=== PATIENT | female | born 1960 | race Caucasian/White ===

== ENCOUNTER 2017-01-01 13:55 | Emergency (ER) | payer MEDICARE, MEDICAID | END 2017-01-01 16:35 | disposition left against medical advice (07) | LOC: UCCORT 13:55 | DX: Z53.21 Procedure and treatment not carried out due to patient leaving prior to being seen by health care provider (principal) ==

== ENCOUNTER 2017-01-23 15:45 | Emergency (ER) | payer MEDICARE, MEDICAID ==
[2017-01-23 16:04] VITALS: BP 114/68
--- NOTE | 2017-01-23 16:18 | UC ---
Hip/Pelvis Pain - HPI Summary HPI Summary: 56 yo female with mental retardation/non verbal was noted to have a bruise of her right thigh today Unsure how she injured it - History Of Current Complaint Chief Complaint: UCLowerExtremity Stated Complaint: RIGHT THIGH INJURY Time Seen by Provider: 01/23/17 16:11 Hx Obtained From: Family/Pilot Plant Technician Mechanism Of Injury: unknown Onset/Duration: Lasting Hours Timing: Constant Severity Initially: Mild Severity Currently: None Pain Intensity: 0 Pain Scale Used: 0-10 Numeric Character Of Pain: Unable To Describe Alleviating Factor(s): Nothing Associated Signs And Symptoms: Positive: Bruising - Allergies/Home Medications Allergies/Adverse Reactions: Allergies Allergy/AdvReac Type Severity Reaction Status Date / Time Diphenhydramine Allergy Unknown Unknown Verified 01/23/17 16:09 [From Benadryl] Reaction Details Fluoxetine [From Prozac] Allergy Unknown Unknown Verified 01/23/17 16:09 Reaction Details Imipramine [From Tofranil] Allergy Unknown Unknown Verified 01/23/17 16:09 Reaction Details Desmopressin Allergy Unknown Verified 01/23/17 16:09 Reaction Details Tricyclic Antidepressants Allergy Unknown Verified 01/23/17 16:09 Reaction Details PMH/Surg Hx/FS Hx/Imm Hx Previously Healthy: Yes Neurological History Of: Reports: Seizures Psychological History Of: Reports: Depression - Surgical History Surgical History: Yes Surgery Procedure, Year, and Place: L ooverectomy, tubal - Family History Known Family History: Positive: None, Unknown - Patient non-verbal - Social History Alcohol Use: None Substance Use Type: None Smoking Status (MU): Never Smoked Tobacco Review of Systems Constitutional: Negative Skin: Bruising Eyes: Negative ENT: Negative Respiratory: Negative Cardiovascular: Negative Gastrointestinal: Negative Genitourinary: Negative Motor: Negative Neurovascular: Negative Musculoskeletal: Negative Neurological: Negative Psychological: Negative All Other Systems Reviewed And Are Negative: Yes Physical Exam Triage Information Reviewed: Yes Appearance: Well-Appearing, No Pain Distress, Well-Nourished Vital Signs: Initial Vital Signs Temp 97.4 F 01/23/17 15:59 Pulse 73 01/23/17 15:59 Resp 14 01/23/17 15:59 BP 114/68 01/23/17 15:59 Pulse Ox 100 01/23/17 15:59 Vital Signs Reviewed: Yes Eyes: Positive: Conjunctiva Clear ENT: Positive: Other: - macroglossia. Negative: Nasal congestion, Nasal drainage Neck: Positive: Supple Respiratory: Positive: Lungs clear, No respiratory distress, No accessory muscle use Cardiovascular: Positive: RRR Musculoskeletal: Positive: Other: - see image, normal gait Neurological: Positive: Alert Skin Exam: Other - see image Hip Injury Course/Dx - Differential Dx/Diagnosis Provider Diagnoses: right thigh ecchymosis /hematoma Discharge - Discharge Plan Condition: Stable Disposition: HOME Patient Education Materials: Hematoma (ED) Referrals: Guerita Crawford MD [Primary Care Provider] - If Needed Additional Instructions: diagnosis: right thigh contusion/hematoma no treatment necessary bruising may spread and take weeks to resolve call for any questions return for any problems Images Front/Back of Body, Lg ([place]): 1 - 10cm x 4 cm ecchymotic region, no limp, does not appear to be painful with palpation
== END 2017-01-23 16:29 | disposition home or self-care (01) ==
LOC: UCCORT 15:45
DX: S70.11XA Contusion of right thigh, initial encounter (principal); X58.XXXA Exposure to other specified factors, initial encounter; Y93.9 Activity, unspecified; Y92.9 Unspecified place or not applicable; F79 Unspecified intellectual disabilities; Z88.8 Allergy status to other drugs, medicaments and biological substances
CPT/HCPCS: 99211; G0463

== ENCOUNTER 2017-05-01 14:58 | Emergency (ER) | payer MEDICARE, MEDICAID ==
[2017-05-01 16:12] VITALS: BP 98/59
--- NOTE | 2017-05-01 16:45 | RAD ---
INDICATION: Left foot injury. TECHNIQUE: 3 views of the left foot were obtained. FINDINGS: The bones are in normal alignment. No fracture is seen. Joint spaces appear maintained. IMPRESSION: NO EVIDENCE FOR FRACTURE.
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
== END 2017-05-01 17:18 | disposition home or self-care (01) ==
LOC: UCCORT 14:58
DX: S90.32XA Contusion of left foot, initial encounter (principal); F79 Unspecified intellectual disabilities; F32.9 Major depressive disorder, single episode, unspecified; M85.80 Other specified disorders of bone density and structure, unspecified site; V00.818A Other accident with wheelchair (powered), initial encounter
CPT/HCPCS: 99211; G0463

== ENCOUNTER 2018-03-20 15:25 | Emergency (ER) | payer MEDICARE, MEDICAID ==
[2018-03-20 16:59] VITALS: BP 102/68
--- NOTE | 2018-03-20 18:03 | UC ---
Knee Pain HPI - HPI Summary HPI Summary: accompanied by resident surgeon, states she lost her footing this afternoon in the bathroom and fell on right knee. She can bear weight and is walking as usual. Patient is non verbal but resident surgeon has not noticed any moaning or grimacing that points to pain or discomfort. - History of Current Complaint Chief Complaint: UCLowerExtremity Stated Complaint: FALL,RIGHT KNEE/HIP Time Seen by Provider: 03/20/18 17:45 Hx Obtained From: Family/Home Aid Hx From Patient Unobtainable Due To: Other - mental retardation Onset/Duration: Sudden Onset, Lasting Hours Severity Initially: Mild Severity Currently: Mild Pain Intensity: 0 Aggravating Factor(s): Nothing Alleviating Factor(s): Nothing Associated Signs And Symptoms: Positive: Negative - Risk Factors Septic Arthritis Risk Factor: Negative Gout Risk Factor: Negative - Allergies/Home Medications Allergies/Adverse Reactions: Allergies Allergy/AdvReac Type Severity Reaction Status Date / Time desmopressin Allergy Unknown Verified 03/20/18 16:51 Reaction Details diphenhydramine Allergy Unknown Verified 03/20/18 16:51 Reaction Details fluoxetine Allergy Unknown Verified 03/20/18 16:51 Reaction Details imipramine Allergy Unknown Verified 03/20/18 16:51 Reaction Details Tricyclic Compounds Allergy Unknown Verified 03/20/18 16:51 Reaction Details Home Medications: Home Medications Calcium Carbonate/Vitamin D3 [Oyster Shell Calcium Tablet] 1 each PO TID [History Confirmed 03/20/18] Cephalexin CAP* [Keflex CAP*] 500 mg PO QID 03/20/18 [History Confirmed 03/20/18 ] Loratadine 10 mg PO DAILY 03/20/18 [History Confirmed 03/20/18] PMH/Surg Hx/FS Hx/Imm Hx Previously Healthy: Yes Neurological History: Seizures - Surgical History Surgical History: Yes Surgery Procedure, Year, and Place: L ooverectomy, tubal - Family History Known Family History: Positive: None, Unknown - Patient non-verbal - Social History Alcohol Use: None Substance Use Type: None Smoking Status (MU): Never Smoked Tobacco Review of Systems Constitutional: Negative Musculoskeletal: Arthralgia All Other Systems Reviewed And Are Negative: Yes Physical Exam Triage Information Reviewed: Yes Appearance: Well-Appearing, No Pain Distress, Well-Nourished Vital Signs: Initial Vital Signs Temp 98 F 03/20/18 16:51 Pulse 78 03/20/18 16:51 Resp 18 03/20/18 16:51 BP 102/68 03/20/18 16:51 Pulse Ox 99 03/20/18 16:51 Vital Signs Reviewed: Yes Eyes: Positive: Conjunctiva Clear Neck exam: Normal Respiratory Exam: Normal Respiratory: Positive: Chest non-tender, Lungs clear, Normal breath sounds Cardiovascular Exam: Normal Cardiovascular: Positive: RRR, No Murmur, Pulses Normal, Brisk Capillary Refill Bowel Sounds: Positive: Present Musculoskeletal: Positive: ROM Intact, No Edema, Other: - superficial abrassion on right knee, no effusion, FROM of right knee and hip, no distal edemas Knee Pain Course/Dx - Course Course Of Treatment: RICE, start ibuprofen one dose if needed for pain, fall prevention, f/u PCP - Differential Dx/Diagnosis Provider Diagnoses: Knee abrassion Discharge - Sign-Out/Discharge Documenting (check all that apply): Discharge/Admit/Transfer - Discharge Plan Condition: Stable Disposition: HOME Patient Education Materials: Ibuprofen (By mouth) Referrals: Guerita Crawford MD [Primary Care Provider] - - Billing Disposition and Condition Condition: STABLE Disposition: HOME
== END 2018-03-20 17:58 | disposition home or self-care (01) ==
LOC: UCCORT 15:25
DX: S80.211A Abrasion, right knee, initial encounter (principal); W19.XXXA Unspecified fall, initial encounter; Y92.9 Unspecified place or not applicable; Z88.8 Allergy status to other drugs, medicaments and biological substances
CPT/HCPCS: 99211; G0463

== ENCOUNTER 2018-05-08 13:30 | Emergency (ER) | payer MEDICARE, MEDICAID ==
[2018-05-08 14:08] VITALS: BP 118/58
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
== END 2018-05-08 14:57 | disposition home or self-care (01) ==
LOC: UCCORT 13:30
DX: S50.311A Abrasion of right elbow, initial encounter (principal); Z88.8 Allergy status to other drugs, medicaments and biological substances; F73 Profound intellectual disabilities; W19.XXXA Unspecified fall, initial encounter; Y93.89 Activity, other specified; Y92.009 Unspecified place in unspecified non-institutional (private) residence as the place of occurrence of the external cause
CPT/HCPCS: 99211; G0463

== ENCOUNTER 2019-01-28 14:51 | Emergency (ER) | payer MEDICARE, MEDICAID ==
--- OUTSIDE RECORDS SUMMARY | 2019-01-28 16:10 | XMS REPORT ---
:1960 Author Care Team Providers Name Role Phone Unavailable Unavailable Unavailable Problems Condition Condition Condition Status Onset Resolution Last Treating Comments Name Details Category Date Date Treatment Clinician Date Profound Active 1999-06-17 Intellectual 00:00:00 Disability Intellectual Active 2018-06-25 Disability, 00:00:00 probable component mild CP Allergies, Adverse Reactions, Alerts Allergy Name Allergy Status Severity Reaction(s) Onset Inactive Treating Comments Type Date Date Clinician MEDICATION Drug Active see notes 1968- ALLERGIES: Allergy -31 Prozac, 19:00:0 Desipramine, 0 Benadryl, Tofranil, FOOD ALLERGIES: None Known OTHER (latex, environmenta l, etc.): None Known Social History Smoking Status Start Date Stop Date Unknown if ever smoked Social History Observation Description Sex Female Medications This patient has no known medications. Vital Signs Vital Name Observation Time Observation Value Comments Body Weight 2018-06-25 00:00:00 134.0 kg BP Systolic 2018-06-25 00:00:00 102 mm[Hg] BP Diastolic 2018-06-25 00:00:00 62 mm[Hg] Body Temperature 2018-06-25 00:00:00 97.7 [place] Heart Rate 2018-06-25 00:00:00 78 /min Respiratory Rate 2018-06-25 00:00:00 20 /min Procedures This patient has no known procedures. Reason for Referral This patient has no known reason for referral. Chief Complaint and Reason for Visit This patient event has no chief complaint or reason for visit specified. Results This patient has no known results. Assessments This patient has no known assessments.
[2019-01-28 16:25] VITALS: BP 104/81
[2019-01-28] MEDS ORDERED: Nitrofurantoin Macrocrystals* 50 MG CAP PO ONE (16:53)
--- NOTE | 2019-01-28 16:57 | UC ---
Complaint Female HPI - HPI Summary HPI Summary: 58-year-old woman with severe mental retardation [facility] she's been having urinary incontinence over the last day to 2 days. Patient has recurrent UTIs. She is currently on Keflex as a prophylactic. Her behavior is slightly more agitated than usual. No fevers noted. Normal BM yesterday. No obvious pain. Caregiver reports urinary incontinence is usually the first sign of a UTI. - History Of Current Complaint Chief Complaint: UCGU Stated Complaint: URINARY COMPLAINT,PACING Time Seen by Provider: 01/28/19 16:31 Hx Last Menstrual Period: N/A Pain Intensity: 0 - Allergies/Home Medications Allergies/Adverse Reactions: Allergies Allergy/AdvReac Type Severity Reaction Status Date / Time desmopressin Allergy Unknown Verified 01/28/19 16:26 Reaction Details diphenhydramine Allergy Unknown Verified 01/28/19 16:26 Reaction Details fluoxetine Allergy Unknown Verified 01/28/19 16:26 Reaction Details imipramine Allergy Unknown Verified 01/28/19 16:26 Reaction Details Tricyclic Compounds Allergy Unknown Verified 01/28/19 16:26 Reaction Details Home Medications: Home Medications Cephalexin CAP* [Keflex CAP*] 250 mg PO DAILY 01/28/19 [History Confirmed ] PMH/Surg Hx/FS Hx/Imm Hx Previously Healthy: Yes - MR, RECURRENT UTIS - Surgical History Surgical History: Yes Surgery Procedure, Year, and Place: L ooverectomy, tubal - Family History Known Family History: Positive: None, Unknown - Patient non-verbal - Social History Alcohol Use: None Substance Use Type: None Smoking Status (MU): Never Smoked Tobacco - Immunization History Most Recent Tetanus Shot: 11/22/12 Vaccination Up to Date: Yes Review of Systems All Other Systems Reviewed And Are Negative: Yes Constitutional: Positive: Negative Skin: Positive: Negative Eyes: Positive: Negative ENT: Positive: Negative Respiratory: Positive: Negative Cardiovascular: Positive: Negative Gastrointestinal: Positive: Negative Genitourinary: Positive: Other - URINARY INCONTINENCE Physical Exam Triage Information Reviewed: Yes Appearance: Well-Appearing, No Pain Distress, Well-Nourished Vital Signs: Initial Vital Signs Temp 98.1 F 01/28/19 16:18 Pulse 84 01/28/19 16:18 Resp 19 01/28/19 16:18 BP 104/81 01/28/19 16:18 Pulse Ox 97 01/28/19 16:18 Vital Signs Reviewed: Yes Eye Exam: Normal Eyes: Positive: Conjunctiva Clear Respiratory: Positive: Lungs clear, Normal breath sounds, No respiratory distress Cardiovascular: Positive: RRR Abdomen Description: Positive: Nontender, Soft Bowel Sounds: Positive: Present Musculoskeletal Exam: Normal Musculoskeletal: Positive: Strength Intact, ROM Intact Neurological Exam: Normal Neurological: Positive: Alert, Muscle Tone Normal Psychological Exam: Normal Skin Exam: Normal Complaint Female Dx - Course Course Of Treatment: The urine showed a trace of blood. Urine culture sent. Because by history: The patient has urinary incontinence usually precedes a UTI we will go ahead and treat with Macrobid 100 mg by mouth twice a day for 7 days. I discussed with the caregiver that if the patient did not get better if she still continued to have problems or if she got worse she needs further evaluation in the emergency department. - Differential Dx/Diagnosis Provider Diagnosis: Urine incontinence Discharge - Sign-Out/Discharge Documenting (check all that apply): Patient Departure All imaging exams completed and their final reports reviewed: No Studies - Discharge Plan Condition: Stable Disposition: HOME Prescriptions: Nitrofurantoin Monohyd/M-Cryst [Macrobid 100 mg Capsule] 100 mg PO BID #13 cap Patient Education Materials: Urinary Incontinence (ED), Urinary Tract Infection in Women (ED) Referrals: Guerita Crawford MD [Primary Care Provider] - Additional Instructions: FOLLOW UP WITH YOUR DOCTOR IN 3-5 DAYS. GO TO THE EMERGENCY DEPARTMENT FOR ANY WORSENING OF YOUR CONDITION; FEVER, PAIN , CHANGE IN BEHAVIOR OR QUESTIONS OR CONCERNS. - Billing Disposition and Condition Condition: STABLE Disposition: Home
--- NOTE | 2019-01-31 07:13 | UC ---
- Progress Note Progress Note: urine no growth no change [id number] 01/31/19 Course/Dx - Diagnoses Provider Diagnoses: Urine incontinence Discharge - Sign-Out/Discharge Documenting (check all that apply): Post-Discharge Follow Up All imaging exams completed and their final reports reviewed: No Studies - Discharge Plan Condition: Stable Disposition: HOME Prescriptions: Nitrofurantoin Monohyd/M-Cryst [Macrobid 100 mg Capsule] 100 mg PO BID #13 cap Patient Education Materials: Urinary Incontinence (ED), Urinary Tract Infection in Women (ED) Referrals: Guerita Crawford MD [Primary Care Provider] - Additional Instructions: FOLLOW UP WITH YOUR DOCTOR IN 3-5 DAYS. GO TO THE EMERGENCY DEPARTMENT FOR ANY WORSENING OF YOUR CONDITION; FEVER, PAIN , CHANGE IN BEHAVIOR OR QUESTIONS OR CONCERNS. - Billing Disposition and Condition Condition: STABLE Disposition: Home
== END 2019-01-28 17:03 | disposition home or self-care (01) ==
LOC: UCCORT 14:51
DX: R32 Unspecified urinary incontinence (principal); F79 Unspecified intellectual disabilities; Z87.440 Personal history of urinary (tract) infections; Z88.8 Allergy status to other drugs, medicaments and biological substances
CPT/HCPCS: 81003; 87086; 99212; A9270-GY; G0463

== ENCOUNTER 2019-09-13 16:03 | Emergency (ER) | payer MEDICARE, MEDICAID ==
--- OUTSIDE RECORDS SUMMARY | 2019-09-13 16:46 | XMS REPORT | Continuity of Care Document ---
:1960 External Reference #:[id number] Author Name Guerita Crawford MD Address [address] [place] [id number] Care Team Providers Name Role Phone Oh, In MD Riana - Obstetrics & Care Team Information Talent Partner Gynecology Tommy Brown - Psychiatry Care Team Information Talent Partner [phone] - Urology Care Team Information Talent Partner [phone] Problems Active Problems Provider Date Anxiety state Guerita Crawford MD Onset: 01/12/2014 Constipation Guerita Crawford MD Onset: 12/10/2007 Moderate major depression, single episode Guerita Crawford MD Onset: 2005 Epilepsy Guerita Crawford MD Onset: 12/10/2005 Anemia Guerita Crawford MD Onset: 12/06/2014 Severe mental retardation (I.Q. 20-34) Guerita Crawford MD Onset: 07/15/2016 History of chronic urinary tract infection Guerita Crawford MD Onset: 2018 Vitamin D deficiency Guerita Crawford MD Onset: 12/07/2018 Osteoporosis Guerita Crawford MD Onset: 05/19/2019 Social History Type Date Description Comments Sex Unknown Tobacco Use Start: Unknown Never Smoked Cigarettes Smoking Status Reviewed: 03/28/19 Never Smoked Cigarettes Tobacco Use Start: Unknown Patient has never smoked Allergies, Adverse Reactions, Alerts Active Allergies Reaction Severity Comments Date Prozac 11/29/2014 Tofranil 11/29/2014 Desipramine 11/29/2014 Benadryl 11/29/2014 Desmopressin Unknown 12/07/2018 Medications Active Medications SIG Qnty Indications Ordering Date Provider Vitamin D 1 by mouth every 30tabs E55.9 Ty 06/13/2019 1000Unit day MD Guerita Tablets Prolia 60 mg SC every 6 1ml M81.0 Ty, 05/19/2019 60mg/ml Soln mos MD Guerita Prefill Syringe SM Clearlax 17 Gram (1 Packet) 510units K59.00 Ty, 04/05/2019 Powder By Mouth Daily MD Guerita Mixed With 8Oz Fluid For Constipation Alprazolam 2 by mouth 1 hour 2tabs F41.1 Ty, 02/23/2018 0.25mg Tablets prior to MD Guerita appointment for mammogram Soluble Fiber Therapy 1 tablespoon in 8 454units Ty, 04/22/2017 oz water every day MD Guerita Powder (do not give with dinner) Loratadine Take 1 Tablet By 30tabs Ty, 03/31/2017 10mg Tablets Mouth Daily MD Guerita Oyster Shell Calcium take 1 tablet by 90tabs Ty, 03/09/2017 mouth 3 times MD Guerita 500mg Tablets daily Debrox 2 drop to each ear 1units H61.23 Ty, 01/01/2017 6.5% Solution canal daily for MD Guerita the first 5 days of each month Nystatin apply to affected 30gm B37.9 Ty, 10/29/2016 826015Aeed/GM area 2 times a day MD Guerita Powder for 7 days as needed Milk Of Magnesia 30cc every day as 710ml K59.00 Ty, 09/12/2016 needed for MD Guerita 1200mg/15ML Suspension constipation Abreva apply twice a day 2units B00.2 G[place]ay, 11/29/2015 10% Cream x 1 week DO [employer] Bismuth Subcarbonate 2 tablespoon by 1Bottle K52.89 Ty, 08/02/2015 mouth as needed MD Guerita Powder after each loose stool Bisacodyl Laxative [address] of rectum 100units Ty, 2014 10mg every 3days as MD Guerita Suppository needed Acetaminophen Insert 1 12units Ty, 11/29/2013 650mg Suppository MD Guerita Suppository Rectally as Needed For Temperature >100 Kmkjsydw-Qxygncijx-Ppt 1 teaspoon every 4 355ml Ty, 01/13/2008 ethicone hours as needed MD Guerita [id number]/5ML for Suspension indigestion/upset stomach Sertraline HCL take 1 & 1/2 42tabs F32.1 Digiovanna, 02/20/2005 100mg tablets (150mg) by MD Satish Tablets mouth daily Divalproex Sodium 2 po sprinkles tid 180tabs G40.909 Unknown 125mg Tablets Cephalmatilda 1 by mouth daily. Z87.440 Elliot, 250mg Tablets (Dr. Zarate) Maria Alejandramoyolanda LUQUE Guaifenesin 10ml every 4 hours Unknown 100mg/5ML as needed Liquid Ibuprofen 1-2 by mouth every 100tabs Unknown 200mg Tablets 6 hours with food or snack as needed pain Pseudoephedrine HCL 1 by mouth every Unknown 30mg 6hr as needed Tablets Acetaminophen 2 by mouth every 4 Unknown 325mg hours a day as Tablets needed for fever >100 History Medications Ciprofloxacin HCL one tab by mouth 6tabs Guerita Crawford, 08/11/2019 - 250mg twice a day for 08/14/2019 Tablets three days for infection Vitamin D3 1000Iu take 1 capsule by 30units E55.9 Guerita Crawford, 2018 - Softgel (SD) mouth daily 06/10/2019 Sulfamethoxazole/Trim 1 by mouth twice 10tabs N39.0 Guerita Crawford, 2018 - ethoprim DS a day x 5 days 04/24/2019 800-160mg Tablets Immunizations CPT Code Status Date Vaccine Lot # [id number] Given 08/29/2018 Influenza Virus Vaccine,Quadrivalent,Split,Preserv Free, 0.5mL,Im Q2039 Given 07/24/2017 Flu Vaccine NOS Q2037 Given 10/24/2014 Fluvirin Immunization 01004 Given 08/23/2010 Afluria Or Fluvirin Flu Vac Intramuscular 66878 Given 11/01/2009 Afluria Or Fluvirin Flu Vac Intramuscular 56693 Given 11/09/2007 Tdap (Adacel) Ages 7 And Above Only 89220 Given 11/09/2007 Tdap (Adacel) Ages 7 And Above Only 80378 Given 09/22/2007 Afluria Or Fluvirin Flu Vac Intramuscular 48482 Given 10/28/2006 Afluria Or Fluvirin Flu Vac Intramuscular 35098 Given 09/24/2005 Afluria Or Fluvirin Flu Vac Intramuscular 63283 Given 09/24/2004 Afluria Or Fluvirin Flu Vac Intramuscular 58733 Given 09/15/2003 Afluria Or Fluvirin Flu Vac Intramuscular Q2039 Refused 08/19/2018 Flu Vaccine NOS Vital Signs Date Vital Result Comment 09/09/2019 10:19am Weight 142.00 lb Heart Rate 78 /min BP Systolic 130 mmHg BP Diastolic 72 mmHg Respiratory Rate 18 /min O2 % BldC Oximetry 98 % Ra 08/03/2019 9:15am Body Temperature 98.4 F Weight 143.00 lb Heart Rate 70 /min BP Systolic 120 mmHg BP Diastolic 64 mmHg Respiratory Rate 18 /min Results Test Date Facility Test Result H/L Range Note Laboratory 08/08/20 [facility]rine Microbiology res Abnormal 1, 2 test finding 19 Culture <SEE NOTE> Laboratory 08/03/20 [facility] Microbiology res 3, 4 test finding 19 Culture <SEE NOTE> [facility] 07/29/20 [facility] White Blood 7.3 K/uL Normal 3.1 -10.7 5 W/Automated 19 (315)- - Count Diff Red Blood Count 4.16 M/uL Normal 3.90-5.40 Hemoglobin 13.5 gm/dL Normal 11.6-15.8 Hematocrit 37.9 % Normal 36.0-46.1 Mean Cell Volume 91.1 fl Normal 80.9-99.0 Mean Corpuscular HGB 32.5 pg Normal 25.9-32.7 Mean Corpuscular HGB Conc 35.6 g/dL High 30.8-34.3 Platelet Count 265 K/uL Normal 155-360 Red Cell Distri Width SD 41.1 fl Normal 36-47 Red Cell Distri Width %CV 12.4 % Normal 11.7-14.4 Mean Platelet Volume 9.5 fl Normal 8.9-12.4 Neut% 55.4 % Normal 40.4-72.8 Lymph % 31.6 % Normal 20.0-42.0 Bandera % 9.3 % Normal 4.3-13.2 Eo% 2.2 % Normal 0.0-6.6 Bas% 0.8 % Normal 0.0-1.1 Immature Grans 0.7 % Normal 0.0-5.0 NRBC % 0.0 /100WBC < 10/ 100 WBC Neut# 4.03 K/uL Normal 1.8-7.0 Lymph # 2.30 K/uL Normal 1.0-4.0 Bandera # 0.68 K/uL Normal 0.3-0.9 Eos # 0.16 K/uL Normal 0.0-0.5 Baso # 0.06 K/uL Normal 0.0-0.1 Immature Grans Absolute 0.05 K/uL NRBC # 0.00 K/uL Laboratory test 05/12/2019 [facility] Vitamin 47.8 30.0-100.0 6, 7 finding (315)- - D,25-Hydroxy ng/mL Ammonia 39 umol/L High 11-32 [facility] Micro[facility] res Abnormal 8 finding <SEE NOTE> 1 House staff with drop off sample 2 Microbiology results COLONY COUNT 40,000 CFU/ML PRELIMINARY RESULT Gram Negative Mikey. ID & Sensitivity to Follow. 08/10/2019 11:46 AM FINAL RESULT Pseudomonas aeruginosa (Isolate 1) Sensitivity Analysis Isolate 1 --------- AMIKACIN <=16 S AZTREONAM <=4 S CEFEPIME <=8 S CEFTAZIDIME 4 S CIPROFLOXACIN <=1 S GENTAMYCIN 4 S IMIPENEM <=1 S LEVOFLOXACIN <=2 S PIPERACILLIN/TAZOBACTAM <=16 S TOBRAMYCIN <=4 S S=Sensitive;I=Indeterminate;R=Resistant 3 Fastin hours 4 Microbiology results SOURCE URINE FINAL RESULT 50,000 CFU/ML Mixed urogenital constanza consistent with contamination. Request fresh specimen if indicated. 5 SHAKING,WITHDRAWL,HAS NOT VOIDED ALL DAY 6 Z79.899 7 Vitamin D deficiency has been defined by the [place] of [employer] and an Endocrine Society practice guideline as a level of serum 25-OH vitamin D less than 20 ng/mL (1,2). The Endocrine Society went on to further define vitamin D insufficiency as a level between 21 and 29 ng/mL (2). 1. IOM ([place] of [employer]). 2010. Dietary reference intakes for calcium and D. [place]: The National Academies Press. 2. Nawaf BEAN, Mary Kate CARMEN, Ariel BESS, et al. Evaluation, treatment, and prevention of vitamin D deficiency: an Endocrine Society clinical practice guideline. JCEM. 2010; 96(7):1911-30. Performed at: RN - [facility] [address] [id number] [place] Attendant: Anne Alvarez MD, Phone: [phone] Microbiology results SOURCE Clean Catch Midstream COLONY COUNT >100,000 CFU/ML PRELIMINARY RESULT Gram Negative Mikey. ID & Sensitivity to Follow. 04/16/2019 11:54 AM FINAL RESULT Enterobacter cloacae (Isolate 1) Sensitivity Analysis Isolate 1 --------- AMIKACIN <=16 S AMOXICILLIN/CLAVULANATE >16/8 R AMPICILLIN >16 R AMPICILLIN/SULBACTAM >16/8 R CEFEPIME <=8 S CEFOTAXIME 16 I CEFTRIAXONE 8 R CEFUROXIME >16 R CIPROFLOXACIN <=1 S ERTAPENEM <=0.5 S GENTAMYCIN <=2 S IMIPENEM <=1 S LEVOFLOXACIN <=2 S NITROFURANTOIN >64 R PIPERACILLIN/TAZOBACTAM <=16 S TETRACYCLINE <=4 S TOBRAMYCIN <=4 S TRIMETHOPRIM/SULFAMETHOXAZ <=2/38 S S=Sensitive;I=Indeterminate;R=Resistant Procedures Date Code Description Status 06/10/2019 06762 Measure Blood Oxygen Level Single Determination Completed 05/11/2019 681312444 Bone Mineral Density Test Completed 05/09/2019 961603931 Bone Mineral Density Test Completed 03/28/2019 34596 Measure Blood Oxygen Level Single Determination Completed 01/20/2019 [id number] Colonoscopy Completed 11/10/2016 016241762 Bone Mineral Density Test Completed Medical Devices Description No Information Available Encounters Type Date Location Provider Dx Diagnosis Office Visit 08/03/2019 [facility] Anita Aparicio NP J06.9 Acute upper 9:00a respiratory infection, unspecified E86.0 Dehydration Office Visit 06/10/2019 1:45p [facility] Marlene Burns PA K64.8 Other hemorrhoids Office Visit 04/12/2019 2:00p [facility] Guerita Crawford MD R35.0 Frequency of micturition Office Visit 03/28/2019 3:30p [facility] Alexia Segura, J06.9 Acute upper respiratory VARITYPIST infection, unspecified Assessments Date Code Description Provider 09/09/2019 Z00.00 Encounter for general adult medical Guerita Crawford MD examination without abnormal findings 09/09/2019 M81.0 Age-related osteoporosis without current Guerita Crawford MD pathological fracture 09/09/2019 F32.1 Major depressive disorder, single Guerita Crawford MD episode, moderate 09/09/2019 G40.909 Epilepsy, unspecified, not intractable, Guerita Crawford MD without status epile 09/09/2019 D64.9 Anemia, unspecified Guerita Crawford MD 09/09/2019 F72 Severe intellectual disabilities Guerita Crawford MD 09/09/2019 Z87.440 Personal history of urinary (tract) Guerita Crawford MD infections 09/09/2019 E55.9 Vitamin D deficiency, unspecified Guerita Crawford MD 09/09/2019 R35.0 Frequency of micturition Guerita Crawford MD 09/09/2019 Z13.31 Encounter for screening for depression Guerita Crawford MD 08/08/2019 E86.0 Dehydration [facility] 08/08/2019 R35.0 Frequency of micturition [facility] 08/03/2019 E86.0 Dehydration [facility] 08/03/2019 J06.9 Acute upper respiratory infection, Anita Aparicio, DEIRDRE unspecified 08/03/2019 R35.0 [facility] 08/03/2019 E86.0 Dehydration Anita Aparicio NP 06/10/2019 K64.8 Other hemorrhoids Marlene Burns PA 06/02/2019 M81.0 Age-related osteoporosis without current Guerita Crawford MD pathological fracture 06/02/2019 M81.0 Age-related osteoporosis without current Schedule, Nurses pathological fractu 04/15/2019 R35.0 Frequency of micturition [facility] 04/12/2019 R35.0 Frequency of micturition Guerita Crawford MD 03/28/2019 J06.9 Acute upper respiratory infection, Alexia Segura NP unspecified Plan of Treatment Future Appointment(s):09/12/2020 10:00 am - Gu[facility] Crawford MD at [facility]/09/2019 - Guerita Crawford MDZ00.00 Encounter for general adult medical examination without abnormal findingsComments:Annual medicare well visit done. Updated list of consulting doctors. Updated medication list see medicare wellness exam form. Counseled about fall prevention.Follow up:1-year MEDICARE WELLNESS EXAM and routine follow-up.M81.0 Age-related osteoporosis without current pathological fractureComments:Kt is working well. Continue current medication. The patient was recommended to walk and stand.F32.1 Major depressive disorder, single episode, moderateComments:Depression is well controlled with the use of sertraline. Continue current medication.G40.909 Epilepsy, unspecified, not intractable, without status epileComments:This is treated by Dr. Cameron.D64.9 Anemia, unspecifiedComments:Anemia has resolved.F72 Severe intellectual disabilitiesComments:She participates in [facility]. We competed her from for participation.Z87.440 Personal history of urinary (tract) infectionsComments:She had positive urine culture. We will repeat the culture to make sure that everything is normal.E55.9 Vitamin D deficiency, unspecifiedComments:She is taking vitamin D supplements daily. Continue with this.R35.0 Frequency of micturitionComments:She had positive urine culture. We will repeat the culture to make sure that everything is normal.Z13.31 Encounter for screening for depressionComments:screening for depression is negative - PHQ2 = 0 Functional Status Functional Condition Comment Date Status Dependent with transportation Active Dependent with using the telephone Active Dependent with shopping Active Dependent with reading Active Dependent with money management Active Dependent with medication management Active Dependent with laundry Active Dependent with housekeeping Active Dependent with food preparation Active Dependent with cooking Active Dependent with cleaning Active Requires assistance with toileting Active Independent with standing Active Dependent with grooming Active Dependent with feeding Active Dependent with dressing Active Dependent with bathing Active Independent with ambulating Active Mental Status Description No Information Available Referrals Description No Information Available
--- OUTSIDE RECORDS SUMMARY | 2019-09-13 16:46 | XMS REPORT | Continuity of Care Document ---
:1960 External Reference #:[id number] Author Name Anita Aparicio, DEIRDRE Address [address] [place] [address] Care Team Providers Name Role Phone Oh, Kody Mayers MD - Obstetrics & Care Team Information Manager Investigations Gynecology Tommy Brown - Psychiatry Care Team Information Manager Investigations [phone] - Urology Care Team Information Manager Investigations [phone] Problems Active Problems Provider Date Anxiety state [...] apply to affected 30gm B37.9 Ty, 10/29/2016 [id number]/GM area 2 times a day MD Guerita [...] Suppository Rectally as Needed For Temperature >100 Eemeceqj-Kiezwghis-Qsl 1 teaspoon every 4 355ml Ty, 01/13/2008 ethicone hours as needed MD Guerita [phone] for Suspension indigestion/upset stomach Sertraline HCL take 1 & 1/2 42tabs F32.1 Digiovanna, 02/20/2005 100mg tablets (150mg) by MD Satish Tablets mouth daily Divalproex Sodium 2 po sprinkles tid 180tabs G40.909 Unknown 125mg Tablets Cephalmatilda 1 by mouth daily. Z87.440 Elliot, 250mg Tablets (Dr. Zarate) Mahmoud Guaifenesin 10ml every 4 hours Unknown 100mg/5ML as needed Liquid Ibuprofen 1-2 by mouth every 100tabs Unknown 200mg Tablets 6 hours with food or snack as needed pain Pseudoephedrine HCL 1 by mouth every Unknown 30mg 6hr as needed Tablets Acetaminophen 2 by mouth every 4 Unknown 325mg hours a day as Tablets needed for fever >100 Acetaminophen insert 1 Unknown 650mg suppository Suppository rectally as needed for temperature >100 History Medications Vitamin D3 1000Iu take 1 capsule 30units E55.9 Guerita Crawford, 06/10/2019 - Softgel (SD) by mouth daily 06/10/2019 Sulfamethoxazole/Trime 1 by mouth 10tabs N39.0 Guerita Crawford, 04/19/2019 - thoprim DS twice a day x 5 MD 04/24/2019 800-160mg days Tablets Ciprofloxacin HCL 1 by mouth 6tabs Guerita Crawford, 02/21/2019 - 250mg twice a day x 3 MD 02/24/2019 Tablets days Immunizations CPT Code Status Date Vaccine Lot # [id number] Given 08/29/2018 Influenza Virus Vaccine,Quadrivalent,Split,Preserv Free, 0.5mL,Im Q2039 Given 07/24/2017 Flu Vaccine NOS Q2037 Given 10/24/2014 Fluvirin Immunization 04807 Given 08/23/2010 Afluria Or Fluvirin Flu Vac Intramuscular 40127 Given 11/01/2009 Afluria Or Fluvirin Flu Vac Intramuscular 05324 Given 11/09/2007 Tdap (Adacel) Ages 7 And Above Only 05016 Given 11/09/2007 Tdap (Adacel) Ages 7 And Above Only 82254 Given 09/22/2007 Afluria Or Fluvirin Flu Vac Intramuscular 14508 Given 10/28/2006 Afluria Or Fluvirin Flu Vac Intramuscular 85158 Given 09/24/2005 Afluria Or Fluvirin Flu Vac Intramuscular 00458 Given 09/24/2004 Afluria Or Fluvirin Flu Vac Intramuscular 05845 Given 09/15/2003 Afluria Or Fluvirin Flu Vac Intramuscular Q2039 Refused 08/19/2018 Flu Vaccine NOS Vital Signs Date Vital Result Comment 08/03/2019 9:15am Body Temperature 98.4 F Weight 143.00 lb Heart Rate 70 /min BP Systolic 120 mmHg BP Diastolic 64 mmHg Respiratory Rate 18 /min 06/10/2019 1:52pm Weight 142.00 lb Heart Rate 71 /min BP Systolic 120 mmHg BP Diastolic 60 mmHg Respiratory Rate 18 /min O2 % BldC Oximetry 98 % Results Test Date Facility Test Result H/L Range Note Laboratory test 08/03/2019 [facility] <pending> finding Culture CBS W/Automated 07/29/2019 [facility] White Blood 7.3 K/ uL Normal 3.1-10.7 1 Diff (315)- - Count Red Blood Count 4.16 M/uL Normal 3.90-5.40 [...] 40.4-72.8 Lymph % 31.6 % Normal 20.0-42.0 [place] % 9.3 % Normal 4.3-13.2 Eo% 2.2 % Normal 0.0-6.6 Bas% 0.8 % Normal 0.0-1.1 Immature Grans 0.7 % Normal 0.0-5.0 NRBC % 0.0 /100WBC < 10/ 100 WBC Neut# 4.03 K/uL Normal 1.8-7.0 Lymph # 2.30 K/uL Normal 1.0-4.0 [place] # 0.68 K/uL Normal 0.3-0.9 Eos # 0.16 K/uL Normal 0.0-0.5 Baso # 0.06 K/uL Normal 0.0-0.1 Immature Grans Absolute 0.05 K/uL NRBC # 0.00 K/uL Laboratory test 05/12/2019 [facility] Vitamin 47.8 30.0-100.0 2, 3 finding (315)- - D,25-Hydroxy ng/mL Ammonia 39 umol/L High 11-32 Laboratory test 04/15/2019 [facility]rine Culture Microbiology res Abnormal 4 finding <SEE NOTE> Laboratory test 02/18/2019 [facility] Urine Culture Microbiology res Abnormal 5 finding <SEE NOTE> CBC with Auto 02/10/2019 [facility] WBC 5.8 K/uL 4.1-11 6 Diff-fcmg .0 RBC 4.24 M/uL 4.00-5.40 Hemoglobin 13.6 gm/dL 12.0-16.0 Hematocrit 39.0 % 36.0-47.0 MCV 91.8 fL 80.0-97.0 MCH 32.0 pg 27.0-32.0 MCHC 34.9 g/dL 32.0-36.0 RDW 13.7 % 11.5-14.5 PLT Count 260 K/ul 140-400 MPV 8.8 FL 7.1-10.7 Neutrophil 57.9 % 35.0-75.0 Lymphocyte 31.0 % 16.0-52.0 Monocyte 7.7 % 2.0-10.0 Eosinophil 2.9 % 0.0-5.0 Basophil 0.5 % 0.0-4.0 Abs Neutrophils 3.4 K/uL 2.1-8.0 Abs Lymphocytes 1.8 K/uL 0.8-5.5 Abs Monocytes 0.5 K/uL 0.1-1.0 Abs Eosinophils 0.2 K/uL 0.0-0.5 Abs Basophils 0.0 K/uL 0.0-0.3 Comprehensive Met Panel-[facility] 02/10/2019 [facility] Sodium 138 mmol/L 135- 146 7 Potassium 4.5 mmol/L 3.5-5.2 Chloride# 97 mmol/L 97-110 8 Carbon Dioxide 30 mmol/L 24-34 Glucose 86 mg/dL 70-105 BUN 14 mg/dL 6-26 Creatinine 0.5 mg/dL 0.5-1.4 Calcium 9.8 mg/dL 8.5-10.2 Total Protein 7.6 g/dL 6.0-8.0 Albumin 4.6 g/dL 3.6-4.9 Globulin 3.0 g/dL 2.0-3.5 A/G Ratio 1.5 Ratio 1.0-2.2 Total Bilirubin 0.3 mg/dL 0.1-1.3 Alkaline Phosphatase 48 U/L 24-140 Alt 10 U/L 3-42 Ast 18 U/L 8-42 Anion Gap 11 mmol/L 5-15 9 Krystal Egfr >60 >60 10 Non Krystal Egfr >60 >60 11 Laboratory test finding 02/10/2019 [facility] TSH 1.62 uIU/mL 0.35-4.94 Laboratory test finding 02/10/2019 [facility] Valproic Acid 95 ug/mL (50- 110) 12 1 SHAKING,WITHDRAWL,HAS NOT VOIDED ALL DAY 2 Z79.899 3 Vitamin D deficiency has been defined by the [employer] of [employer] and an Endocrine Society practice guideline as a level of serum 25-OH vitamin D less than 20 ng/mL (1,2). The Endocrine Society went on to further define vitamin D insufficiency as a level between 21 and 29 ng/mL (2). 1. IOM ([employer] of [employer]). 2010. Dietary reference intakes for calcium and D. [place]: The National Academies Press. 2. Nawaf MF, Mary Kate NC, Ariel BESS, et al. Evaluation, treatment, and prevention of vitamin D deficiency: an Endocrine Society clinical practice guideline. JCEM. 2010; 96(7):1911-30. Performed at: RN - [facility] [address] [id number] Food Inspector: Anne Alvarez MD, Phone: [phone] 4 Microbiology results SOURCE Clean Catch Midstream COLONY [...] TOBRAMYCIN <=4 S TRIMETHOPRIM/SULFAMETHOXAZ <=2/38 S S=Sensitive;I=Indeterminate;R=Resistant 5 Microbiology results SOURCE Clean Catch Midstream COLONY COUNT >100,000 CFU/ML PRELIMINARY RESULT Gram Negative Mikey. ID & Sensitivity to Follow. 02/19/2019 8:24 PM FINAL RESULT Pseudomonas aeruginosa (Isolate 1) Sensitivity Analysis Isolate 1 --------- AMIKACIN <=16 S AZTREONAM <=4 S CEFEPIME <=8 S CEFTAZIDIME 8 S CIPROFLOXACIN <=1 S GENTAMYCIN <=2 S IMIPENEM <=1 S LEVOFLOXACIN <=2 S PIPERACILLIN/TAZOBACTAM <=16 S TOBRAMYCIN <=4 S S=Sensitive;I=Indeterminate;R=Resistant 6 6 mos 7 Updated reference range on new analyzer 8 Updated reference range on new analyzer 9 Updated Reference Range 10 Concerning GFR Guidelines for Americans: Normal function or mild renal disease, if clinically at risk: >/= 60 mL/min Moderately decreased: 30-59 Severely decreased: 15-29 Renal failure: <15 11 Concerning GFR Guidelines: Normal function or mild renal disease, if clinically at risk: >/= 60 mL/min Moderately decreased: 30-59 Severely decreased: 15-29 Renal failure: <15 Glomerular Filtration Rate (GFR) is estimated based on the MDRD equation, which assumes a steady state for creatinine as recommended by the National Kidney Disease Education Program in conjunction with the National Institutes of Health and the National Kidney Foundation. Clinical conditions in which it may be necessary to measure GFR by using clearance methods include extremes of age and body size, severe malnutrition or obesity, diseases of skeletal muscle, paraplegia or quadriplegia, vegetarian diet, rapidly changing kidney function, and calculation of the dose of potentially toxic drugs that are excreted by the kidneys. 12 Unless otherwise specified, testing performed by [facility] [address] [place] [id number] Procedures Date Code Description Status 06/10/2019 84486 Measure Blood Oxygen Level Single Determination Completed 05/11/2019 923643401 Bone Mineral Density Test Completed 05/09/2019 [id number] Bone Mineral Density Test Completed 03/28/2019 81931 Measure Blood Oxygen Level Single Determination Completed 01/20/2019 [id number] Colonoscopy Completed 11/10/2016 [id number] Bone Mineral Density Test Completed Medical Devices Description No Information Available Encounters Type Date Location Provider Dx Diagnosis Office Visit 06/10/2019 [facility] Marlene Burns PA K64.8 Other hemorrhoids 1:45p Office Visit 04/12/2019 [facility] Guerita Crawford MD R35.0 Frequency of 2:00p micturition Office Visit 03/28/2019 [facility] Jerome Segura06.9 Acute upper 3:30p Alexia, [employer] respiratory infection, unspecified Office Visit 02/17/2019 [facility] Guerita Crawford MD F41.1 Generalized anxiety 2:30p disorder K59.00 Constipation, unspecified F32.1 Major depressive disorder, single episode, moderate G40.909 Epilepsy, unsp, not intractable, without status epilepticus D64.9 Anemia, unspecified F72 Severe intellectual disabilities Z87.440 Personal history of urinary (tract) infections E55.9 Vitamin D deficiency, unspecified M85.89 Ot disrd of bone density and structure, multiple sites Z12.31 Encntr screen mammogram for malignant neoplasm of breast Assessments Date Code Description Provider 08/03/2019 J06.9 Acute upper respiratory infection, Anita Aparicio NP unspecified 08/03/2019 E86.0 Dehydration Anita Aparicio NP 06/10/2019 K64.8 Other hemorrhoids Marlene Burns PA 06/02/2019 M81.0 Age-related osteoporosis without current Guerita Crawford MD pathological fracture 06/02/2019 M81.0 Age-related osteoporosis without current Schedule, Nurses pathological fractu 04/15/2019 R35.0 Frequency of micturition [facility] 04/12/2019 R35.0 Frequency of micturition Guerita Crawford MD 03/28/2019 J06.9 Acute upper respiratory infection, Digiovanna, Alexia, [employer] unspecified 02/18/2019 R30.0 Dysuria Guerita Crawford MD 02/18/2019 R30.0 Dysuria Schedule, Laboratory 02/18/2019 R30.0 Dysuria [facility] 02/17/2019 F41.1 Generalized anxiety disorder Guerita Crawford MD 02/17/2019 K59.00 Constipation, unspecified Guerita Crawford MD 02/17/2019 F32.1 Major depressive disorder, single Guerita Crawford MD episode, moderate 02/17/2019 G40.909 Epilepsy, unspecified, not intractable, Guerita Crawford MD without status epile 02/17/2019 D64.9 Anemia, unspecified Guerita Crawford MD 02/17/2019 F72 Severe intellectual disabilities Guerita Crawford MD 02/17/2019 Z87.440 Personal history of urinary (tract) Guerita Crawford MD infections 02/17/2019 E55.9 Vitamin D deficiency, unspecified Guerita Crawford MD 02/17/2019 M85.89 Other specified disorders of bone density Guerita Crawford MD and structure, mul 02/17/2019 Z12.31 Encounter for screening mammogram for Guerita Crawford MD malignant neoplasm of 02/10/2019 G40.909 Epilepsy, unspecified, not intractable, Guerita Crawford MD without status epilepticus 02/10/2019 G40.909 Epilepsy, unsp, not intractable, without Schedule, Laboratory status epilepticus 02/10/2019 D64.9 Anemia, unspecified Guerita Crawford MD 02/10/2019 D64.9 Anemia, unspecified Schedule, Laboratory 02/10/2019 F41.1 Generalized anxiety disorder Guerita Crawford MD 02/10/2019 F41.1 Generalized anxiety disorder Schedule, Laboratory 02/10/2019 F32.1 Major depressive disorder, single Guerita Crawford MD episode, moderate 02/10/2019 F32.1 Major depressive disorder, single Schedule, Laboratory episode, moderate 02/10/2019 D64.9 Anemia, unspecified [facility] 02/10/2019 F41.1 Generalized anxiety disorder [facility] 02/10/2019 F32.1 Major depressive disorder, single [facility] episode, moderate Plan of Treatment Future Appointment(s):08/18/2019 11:00 am - Guerita Crawford MD at [facility]08/03/2019 - Anita Aparicio, NPJ06.9 Acute upper respiratory infection, unspecifiedComments :Resolved. Exam WNL. She is just getting over a viral UTI.Continue to push fluids until energy level returns to baselineMay return to Dayhab as long as she remains fever freeResume routine medications as fcipijqT21.0 DehydrationComments:PO intake back to baselineUrine dip normal today. Send culture Functional Status Functional Condition Comment Date Status [...]
[2019-09-13 16:52] VITALS: BP 104/70
--- NOTE | 2019-09-13 17:21 | UC ---
Lower Extremity/Ankle HPI - HPI Summary HPI Summary: Per astro technician: "Aide walking with pt when she fell. He was holding her arm and caught her. Pt' s left knee is slightly swollen with an abrasion. Pt is ambulating normally and does not appear to be in any pain or discomfort. " -history comes from aidmelanie Davies who was with her withe fall. -reports that she has signfiicant osteoporsis. - History of Current Complaint Chief Complaint: UCWounds Stated Complaint: SP FALL-BI LAT KNEE INJURY Time Seen by Provider: 09/13/19 17:19 Hx Last Menstrual Period: N/A Pain Intensity: 0 - Allergies/Home Medications Allergies/Adverse Reactions: Allergies Allergy/AdvReac Type Severity Reaction Status Date / Time desmopressin Allergy Unknown Verified 07/21/19 19:37 Reaction Details diphenhydramine Allergy Unknown Verified 07/21/19 19:37 Reaction Details fluoxetine Allergy Unknown Verified 07/21/19 19:37 Reaction Details imipramine Allergy Unknown Verified 07/21/19 19:37 Reaction Details Tricyclic Compounds Allergy Unknown Verified 07/21/19 19:37 Reaction Details Home Medications: Home Medications Cholecalciferol (Vitamin D3) [Vitamin D3] 1,000 unit PO DAILY 09/13/19 [History Confirmed 09/13/19] PMH/Surg Hx/FS Hx/Imm Hx Neurological History: Seizures, Other - see above - Surgical History Surgical History: Yes Surgery Procedure, Year, and Place: L ooverectomy, tubal - Family History Known Family History: Positive: Unknown - Social History Alcohol Use: None Substance Use Type: None Smoking Status (MU): Never Smoked Tobacco - Immunization History Most Recent Tetanus Shot: 11/22/12 Vaccination Up to Date: Yes Review of Systems All Other Systems Reviewed And Are Negative: Yes Constitutional: Positive: Negative Skin: Positive: Other - abrsion. unable to get a ROS as she is non verbal and not able to nod yes or no to questions in a meaningful way. Motor: Negative: Decreased ROM Musculoskeletal: Positive: Other: - see above.. Negative: Decreased ROM Psychological: Positive: Other - severe MR Physical Exam Triage Information Reviewed: Yes Appearance: Well-Appearing, No Pain Distress, Well-Nourished - sitting comfortably in WC with left knee comfortably crossed over right knee Vital Signs: Initial Vital Signs Temp 98.0 F 09/13/19 16:45 Pulse 65 09/13/19 16:45 Resp 20 09/13/19 16:45 BP 104/70 09/13/19 16:45 Pulse Ox 94 09/13/19 16:45 Vital Signs Reviewed: Yes Respiratory Exam: Normal Respiratory: Positive: Lungs clear Cardiovascular Exam: Normal Musculoskeletal: Positive: Other: - left knee with pre-patellar mod abrasion. no active bleeding. no obvious FBs. no brusing. no edema. Neurological Exam: Normal Psychological: Positive: Other: - severe MR, non-verbal Skin: Positive: Other - see above Lower Extremity Course/Dx - Course Course Of Treatment: Left knee xray to r/o frx in pt unable to provide hsitoy bc signficant OP hx. "FINDINGS: On the lateral view there is increased density and thickening of the subcutaneous tissue overlying the knee measuring 1 cm. The visualized bones are well-corticated and properly aligned. The joint spaces are properly maintained. There is no radiographic evidence of joint effusion. There is no acute fracture , dislocation or other focal bony abnormality. IMPRESSION: There is infiltration and thickening of the subcutaneous tissue overlying the knee while the knee is otherwise intact and anatomically aligned without evidence of intra- articular effusion. If the patient's symptoms persist, follow-up imaging is recommended. < Electronically signed by Antwan Mercer MD in [place]> 09/13/191801" -cleansed, triple abx ointment and bandaged. - Differential Dx/Diagnosis Differential Diagnosis/HQI/PQRI: Contusion, Fracture (Closed), Other - fracture Provider Diagnosis: Abrasion of knee, left Discharge ED - Sign-Out/Discharge Documenting (check all that apply): Patient Departure All imaging exams completed and their final reports reviewed: Yes - Discharge Plan Condition: Stable Disposition: HOME Patient Education Materials: Abrasion (ED) Referrals: Guerita Crawford MD [Primary Care Provider] - 3 Days Additional Instructions: The knee xray report is included with your discharge ppwk. There is no sign of a fracture but saira xray should be repeated if there is still symptoms. Keep it covered and clean. Bacitracin ointment can be applied. Watch for any signs of infection. - Billing Disposition and Condition Condition: STABLE Disposition: Home
== END 2019-09-13 18:19 | disposition home or self-care (01) ==
LOC: UCCORT 16:03
DX: S80.212A Abrasion, left knee, initial encounter (principal); Z88.8 Allergy status to other drugs, medicaments and biological substances; W18.30XA Fall on same level, unspecified, initial encounter; Y93.01 Activity, walking, marching and hiking; Y92.9 Unspecified place or not applicable
CPT/HCPCS: 99212; G0463

== ENCOUNTER 2019-12-27 12:28 | Emergency (ER) | payer MEDICARE, MEDICAID ==
--- OUTSIDE RECORDS SUMMARY | 2019-12-27 12:37 | XMS REPORT | Continuity of Care Document ---
:1960 External Reference #:[id number] Author Name Anita Aparicio, DEIRDRE Address [address] [place] [address] Care Team Providers Name Role Phone Oh, Kody Mayers MD - Obstetrics & Care Team Information Staff Development Manager [phone] Gynecology Tommy Brown - Psychiatry Care Team Information Staff Development Manager [phone] - Urology Care Team Information Staff Development Manager [phone] Problems Active Problems Provider Date Anxiety state [...] Unknown Never Smoked Cigarettes Smoking Status Reviewed: 12/09/19 Never Smoked Cigarettes Tobacco Use Start: Unknown Patient has never smoked Allergies, Adverse Reactions, Alerts Active Allergies Reaction Severity Comments Date Prozac 11/29/2014 Tofranil 11/29/2014 Desipramine 11/29/2014 Benadryl 11/29/2014 Desmopressin Unknown 12/07/2018 Medications Active Medications SIG Qnty Indications Ordering Date Provider Cefdinir One tab by mouth Unknown 12/08/2019 300mg Capsules bid Metronidazole One tab by mouth Unknown 12/08/2019 500mg bid Tablets Vitamin D 1 by mouth every 30tabs E55.9 Ty, 06/13/2019 1000Unit day MD Guerita Tablets Prolia 60 mg sc every 6 1ml Ty, 05/19/2019 60mg/ml Soln mos MD Guerita Prefill Syringe SM Clearlax 17 Gram (1 Packet) 510units K59.00 Ty, 04/05/2019 Powder By Mouth Daily MD Guerita Mixed With 8Oz Fluid For Constipation Alprazolam 1 by mouth 1 hour 2tabs F41.1 Ty, 02/23/2018 0.25mg Tablets prior to dental MD Guerita appointment Soluble Fiber Therapy 1 tablespoon in 8 [...] apply to affected 30gm B37.9 Ty, 10/29/2016 [id number]/GM area 2 times a day MD Guerita [...] Suppository Rectally as Needed For Temperature >100 Gyovlqpm-Kdmlfxitv-Mfb 1 teaspoon every 4 355ml Ty 01/13/2008 ethicone hours as needed MD Guerita [phone] for Suspension indigestion/upset stomach Sertraline HCL take 1 & 1/2 135tabs F32.1 Ty, 02/20/2005 100mg tablets (150mg) by MD Guerita Tablets mouth daily Divalproex Sodium 2 po [...] Vitamin D3 1000Iu take 1 capsule by 30undavina E55.9 Guerita Crawford, 2018 - Softgel (SD) mouth daily 06/10/2019 Immunizations CPT Code Status Date Vaccine Lot # [id number] Given 08/29/2018 Influenza Virus Vaccine,Quadrivalent,Split,Preserv Free, 0.5mL,Im Q2039 Given 07/24/2017 Flu Vaccine NOS Q2037 Given 10/24/2014 Fluvirin Immunization 70092 Given 08/23/2010 Afluria Or Fluvirin Flu Vac Intramuscular 80143 Given 11/01/2009 Afluria Or Fluvirin Flu Vac Intramuscular 07183 Given 11/09/2007 Tdap (Adacel) Ages 7 And Above Only 44089 Given 11/09/2007 Tdap (Adacel) Ages 7 And Above Only 99285 Given 09/22/2007 Afluria Or Fluvirin Flu Vac Intramuscular 25145 Given 10/28/2006 Afluria Or Fluvirin Flu Vac Intramuscular 67856 Given 09/24/2005 Afluria Or Fluvirin Flu Vac Intramuscular 01026 Given 09/24/2004 Afluria Or Fluvirin Flu Vac Intramuscular 10162 Given 09/15/2003 Afluria Or Fluvirin Flu Vac Intramuscular Q2039 Refused 08/19/2018 Flu Vaccine NOS Vital Signs Date Vital Result Comment 12/09/2019 11:01am Body Temperature 97.3 F Heart Rate 92 /min BP Systolic 102 mmHg BP Diastolic 68 mmHg Respiratory Rate 18 /min O2 % BldC Oximetry 95 % 09/09/2019 10:19am Weight 142.00 lb Heart Rate 78 /min BP Systolic 130 mmHg BP Diastolic 72 mmHg Respiratory Rate 18 /min O2 % BldC Oximetry 98 % Ra Results Test Acquired Date Facility Test Result H/L Range Note Ua RFX Micro & 12/08/2019 [facility] Urine Color Light- Yellow Yellow 1 Culture II (315)- - Urine Clarity Clear Clear Urine Glucose - Dipstick NEGATIVE mg/dL Negative Urine Bilirubin - Dipstick NEGATIVE Negative Urine Ketone NEGATIVE mg/dL Negative Urine Specific [place] 1.021 Normal 1.010-1.030 Urine Blood NEGATIVE Negative Urine PH 8.0 High 6.5-7.5 Urine Protein - Dipstick 30 mg/dL Abnormal Negative Urine Urobilinogen - Dipstick < 2.0 mg/dL < 2.0 Urine Nitrite - Dipstick NEGATIVE Negative Urine Leuk Esterase NEGATIVE Negative Urine RBC 11-20 rbc/hpf 0-2 Urine WBC 0-2 wbc/hpf 0-5 Urine Bacteria FEW None Seen Urine Hyaline Cast 0-2 #/lpf None Seen Urine Mucus MODERATE None Seen Urine Yeast FEW None Seen Source: URINE, CLEAN CAT <SEE NOTE> 2 CBS W/Automated 12/08/2019 [facility] White Blood 8.4 K/ uL Normal 3.1-10.7 Diff (315)- - Count Red Blood Count 4.53 M/uL Normal 3.90-5.40 Hemoglobin 14.0 gm/dL Normal 11.6-15.8 Hematocrit 41.0 % Normal 36.0-46.1 Mean Cell Volume 90.5 fl Normal 80.9-99.0 Mean Corpuscular HGB 30.9 pg Normal 25.9-32.7 Mean Corpuscular HGB Conc 34.1 g/dL Normal 30.8-34.3 Platelet Count 247 K/uL Normal 155-360 Red Cell Distri Width SD 42.8 fl Normal 36-47 Red Cell Distri Width %CV 12.9 % Normal 11.7-14.4 Mean Platelet Volume 10.0 fl Normal 8.9-12.4 Neut% 63.6 % Normal 40.4-72.8 Lymph % 22.1 % Normal 20.0-42.0 Arroyo % 11.5 % Normal 4.3-13.2 Eo% 1.7 % Normal 0.0-6.6 Bas% 0.7 % Normal 0.0-1.1 Immature Grans 0.4 % Normal 0.0-5.0 NRBC % 0.0 /100WBC < 10/ 100 WBC Neut# 5.32 K/uL Normal 1.8-7.0 Lymph # 1.85 K/uL Normal 1.0-4.0 Arroyo # 0.96 K/uL High 0.3-0.9 Eos # 0.14 K/uL Normal 0.0-0.5 Baso # 0.06 K/uL Normal 0.0-0.1 Immature Grans Absolute 0.03 K/uL NRBC # 0.00 K/uL Influenza A/B 12/08/2019 [facility] Influenza A Negative (Negative) Antigen (315)- - Antigen Influenza B Antigen Negative (Negative) 3 Lactic Acid 12/08/2019 [facility] Lactic Acid 1.8 mmol/L Normal 0.4-1.9 (315)- - Lab Reflex >2.0 for Sepsis? Y Comprehensive Metabolic 12/08/2019 [facility] Glucose 119 mg/dL High 74-106 Panel (315)- - BUN 16 mg/dL Normal 7-18 Creatinine 0.6 mg/dL Normal 0.6-1.3 Glom Filtration Rate, Estimate >60 mL/min >60 If >60 mL/min >60 4 BUN/Creat 26.6 ratio Sodium 136 mmol/L Normal 136-145 Potassium 3.6 mmol/L Normal 3.5-5.1 Chloride 102 mmol/L Normal 98-107 Carbon Dioxide 30 mmol/L Normal 21-32 Anion Gap 4 mEq/L Low 8-16 Calcium 8.9 mg/dL Normal 8.5-10.1 Total Protein 8.4 g/dL High 6.4-8.2 Albumin 3.8 g/dL Normal 3.4-5.0 Globulin 4.6 g/dL High 1.9-4.3 Alb/Glob 0.8 ratio Bilirubin,Total 0.3 mg/dL Normal 0.2-1.0 Sgot/Ast 12 U/L Low 15-37 5 SGPT/Alt 16 U/L Normal 12-78 Alkaline Phosphatase 53 U/L Normal 45-117 Laboratory test 08/08/2019 [facility] Microbiology res Abnormal 6, 7 finding Culture <SEE NOTE> Laboratory test 08/03/2019 [facility] Microbiology res 8, 9 finding Culture <SEE NOTE> CBS W/Automated 07/29/2019 [facility] White Blood 7.3 K/ uL Normal 3.1- 10 Diff (315)- - Count 10.7 Red Blood Count 4.16 M/uL Normal 3.90-5.40 [...] 40.4-72.8 Lymph % 31.6 % Normal 20.0-42.0 Arroyo % 9.3 % Normal 4.3-13.2 Eo% 2.2 % Normal 0.0-6.6 Bas% 0.8 % Normal 0.0-1.1 Immature Grans 0.7 % Normal 0.0-5.0 NRBC % 0.0 /100WBC < 10/ 100 WBC Neut# 4.03 K/uL Normal 1.8-7.0 Lymph # 2.30 K/uL Normal 1.0-4.0 Arroyo # 0.68 K/uL Normal 0.3-0.9 Eos # 0.16 K/uL Normal 0.0-0.5 Baso # 0.06 K/uL Normal 0.0-0.1 Immature Grans Absolute 0.05 K/uL NRBC # 0.00 K/uL 1 GEN ILL 2 URINE, CLEAN CATCH 3 Please Note: A POSITIVE result for influenza A and/or B antigen does not rule out a co-infection with other pathogens or identify any specific influenza A virus subtype. A NEGATIVE result for influenza A and/or B antigen does not preclude influenza virus infection and should not be the sole basis for treatment or other management decisions, since the antigen present in the specimen may be below the detection limit of the test. A NEGATIVE result is PRESUMPTIVE and it is recommended these results be confirmed by virus culture or an FDA-cleared influenza A and B molecular assay. Method: [employer] Chromatographic immunoassay 4 Note: Persistent reduction for 3 months or more in an eGFR <60 mL/min/1.73 m2 defines CKD. Patients with eGFR values >/=60 mL/min/1.73 m2 may also have CKD if evidence of persistent proteinuria is present. The original MDRD equation for estimated GFR is not valid for patients less than 18 years of age. Additional information may be found at www.kdoqi.org. 5 Values below the stated reference ranges of AST and ALT can be seen in normal populations. Clinical correlation is suggested. 6 House staff with drop off sample 7 Microbiology results COLONY COUNT 40,000 CFU/ML PRELIMINARY RESULT Gram Negative Mikey. ID & Sensitivity to Follow. 08/10/2019 11:46 AM FINAL RESULT Pseudomonas aeruginosa (Isolate 1) Sensitivity Analysis Isolate 1 --------- AMIKACIN <=16 S AZTREONAM <=4 S CEFEPIME <=8 S CEFTAZIDIME 4 S CIPROFLOXACIN <=1 S GENTAMYCIN 4 S IMIPENEM <=1 S LEVOFLOXACIN <=2 S PIPERACILLIN/TAZOBACTAM <=16 S TOBRAMYCIN <=4 S S=Sensitive;I=Indeterminate;R=Resistant 8 Fastin hours 9 Microbiology results SOURCE URINE FINAL RESULT 50,000 CFU/ML Mixed urogenital constanza consistent with contamination. Request fresh specimen if indicated. 10 SHAKING,WITHDRAWL,HAS NOT VOIDED ALL DAY Procedures Date Code Description Status 12/09/2019 17371 Admin Of Inj (Therapeutic Phrophylactic Or Diagnostic Completed Subq Inj 06/10/2019 85365 Measure Blood Oxygen Level Single Determination Completed 05/11/2019 [id number] Bone Mineral Density Test Completed 05/09/2019 [id number] Bone Mineral Density Test Completed 01/20/2019 76358346 Colonoscopy Completed 11/10/2016 498428314 Bone Mineral Density Test Completed Medical Devices Description No Information Available Encounters Type Date Location Provider Dx Diagnosis Office Visit 09/09/2019 [facility] Guerita Crawford MD Z00.00 Encntr for general 10:30a adult medical exam w/o abnormal findings M81.0 Age-related osteoporosis w/o current pathological fracture F32.1 Major depressive disorder, single episode, moderate G40.909 Epilepsy, unsp, not intractable, without status epilepticus D64.9 Anemia, unspecified F72 Severe intellectual disabilities Z87.440 Personal history of urinary (tract) infections E55.9 Vitamin D deficiency, unspecified R35.0 Frequency of micturition Z13.31 Encounter for screening for depression Office Visit 08/03/2019 9:00a [facility] Anita Aparicio NP J06.9 Acute upper respiratory infection, unspecified E86.0 Dehydration Office Visit 06/10/2019 1:45p [facility] Marlene Burns PA K64.8 Other hemorrhoids Assessments Date Code Description Provider 12/09/2019 J18.9 Pneumonia, unspecified organism Anita Aparicio NP 09/09/2019 Z00.00 Encounter for general adult medical Guerita Crawford MD examination without abnormal findings 09/09/2019 M81.0 Age-related osteoporosis without current Guerita Crawford MD pathological fracture 09/09/2019 F32.1 Major depressive disorder, single episode, Guerita Crawford MD moderate 09/09/2019 G40.909 Epilepsy, unspecified, not intractable, Guerita Crawford MD without status epile 09/09/2019 D64.9 Anemia, unspecified Guerita Crawford MD 09/09/2019 F72 Severe intellectual disabilities Guerita Crawford MD 09/09/2019 Z87.440 Personal history of urinary (tract) infections Guerita Crawford MD 09/09/2019 E55.9 Vitamin D deficiency, unspecified Guerita Crawford MD 09/09/2019 R35.0 Frequency of micturition Guerita Crawford MD 09/09/2019 Z13.31 Encounter for screening for depression Guerita Crawford MD 08/08/2019 E86.0 Dehydration [facility] 08/08/2019 R35.0 Frequency of micturition [facility] 08/03/2019 E86.0 Dehydration [facility] 08/03/2019 J06.9 Acute upper respiratory infection, unspecified Anita Aparicio NP 08/03/2019 R35.0 Frequency of micturition [facility] 08/03/2019 E86.0 Dehydration Anita Aparicio NP 06/10/2019 K64.8 Other hemorrhoids Marlene Burns PA Plan of Treatment Future Appointment(s):09/12/2020 10:00 am - Guerita Crawford MD at [facility]12/09/2019 - Anita Aparicio NPJ18.9 Pneumonia, unspecified organismComments:Possible aspiration pneumonia. Recommend continue abx as prescribed. Can revert back to as needed Acetaminophen for fever >100. Call with development of chest congestion, SOB, wheezing, change in appetite or energy, or dysphagia.Follow up: As needed Functional Status Functional Condition Comment Date Status [...]
[2019-12-27 13:11] VITALS: BP 127/79
[2019-12-27 13:42] LABS: Influenza A Molecular Negative (Negative); Influenza B Molecular Negative (Negative)
--- NOTE | 2019-12-27 13:45 | UC ---
FLU HPI - HPI Summary HPI Summary: 59-year-old female with developmental disability presents with caregiver for her fever. Caregiver states that patient was at dayhab and caretakers noticed that she was not acting like herself. She was noted to have an elevated temperature of 100.7 F. Caregiver states that when she attempted to take her temperature she appeared to have some pain in the right ear. States several people in the [facility] are presently sick with upper respiratory symptoms. Denies nasal congestion, runny nose, cough, ankle to breathing, vomiting, or diarrhea. - History of Current Complaint Chief Complaint: UCGeneralIllness Stated Complaint: FEVER EARS Time Seen by Provider: 12/27/19 13:12 Hx Obtained From: Patient Hx Last Menstrual Period: N/A Pain Intensity: 5 - Allergy/Home Medications Allergies/Adverse Reactions: Allergies Allergy/AdvReac Type Severity Reaction Status Date / Time desmopressin Allergy Unknown Verified 12/27/19 13:11 Reaction Details diphenhydramine Allergy Unknown Verified 12/27/19 13:11 Reaction Details fluoxetine Allergy Unknown Verified 12/27/19 13:11 Reaction Details imipramine Allergy Unknown Verified 12/27/19 13:11 Reaction Details Tricyclic Compounds Allergy Unknown Verified 12/27/19 13:11 Reaction Details Home Medications: Home Medications Denosumab [Prolia] 1 dose SUBCUT SEE INSTRUCTIONS 12/27/19 [History Confirmed ] PMH/Surg Hx/FS Hx/Imm Hx Neurological History: Seizures, Other - Developmental disability - Surgical History Surgical History: Yes Surgery Procedure, Year, and Place: L oopherectomy, tubal - Family History Known Family History: Positive: Unknown - Social History Occupation: Unemployed Lives: Sn[place] Alcohol Use: None Substance Use Type: None Smoking Status (MU): Never Smoked Tobacco - Immunization History Most Recent Tetanus Shot: 11/22/12 Vaccination Up to Date: Yes Review of Systems All Other Systems Reviewed And Are Negative: Yes Constitutional: Positive: Fever Eyes: Negative: Drainage, Eye Redness ENT: Positive: Ear Ache. Negative: Nasal Discharge, Sinus Congestion, Sinus Pain/Tenderness Respiratory: Negative: Cough Gastrointestinal: Negative: Vomiting, Diarrhea Is Patient Immunocompromised?: No Physical Exam - Summary Physical Exam Summary: GENERAL APPEARANCE: Alert and cooperative older adult female with developmental disability and is nonverbal who appears to be in no acute distress. EYES: Conjunctiva clear. No drainage. EARS: External auditory canals and tympanic membranes clear, hearing grossly intact. NOSE: No nasal discharge. THROAT: Pharynx normal. No tonsilar inflammation, swelling, exudate, or lesions. Uvula midline. NECK: Neck supple, non-tender without lymphadenopathy. CARDIAC: Normal S1 and S2. No S3, S4 or murmurs. Rhythm is regular. There is no peripheral edema, cyanosis or pallor. Extremities are warm and well perfused. Capillary refill is less than 2 seconds. Peripheral pulses intact. LUNGS: Respirations easy and unlabored. Course crackles noted to the left lower lung field. ABDOMEN: Positive bowel sounds. Soft, nondistended, nontender. No guarding or rebound. No masses or hepatosplenomegally. MUSKULOSKELETAL: ROM intact to all extremities. No joint erythema or tenderness. Normal muscular development. Normal gait. SKIN: Skin normal color, texture and turgor with no lesions or eruptions. Triage Information Reviewed: Yes Vital Signs: Initial Vital Signs Temp 99.8 F 12/27/19 12:59 Pulse 93 12/27/19 12:59 Resp 18 12/27/19 12:59 BP 127/79 12/27/19 12:59 Pulse Ox 97 12/27/19 12:59 Vital Signs Reviewed: Yes Flu Course/Dx - Course Course Of Treatment: 59-year-old female with developmental disability presents with caregiver for her fever. Caregiver states that patient was at dayhab and caretakers noticed that she was not acting like herself. She was noted to have an elevated temperature of 100.7 F. Caregiver states that when she attempted to take her temperature she appeared to have some pain in the right ear. States several people in the [facility] are presently sick with upper respiratory symptoms. Denies nasal congestion, runny nose, cough, ankle to breathing, vomiting, or diarrhea. Afebrile. Vital signs stable. Patient had no nasal congestion, normal TMs, normal pharynx, no cervical lymphadenopathy, was in no respiratory distress, however did have coarse crackles in the left lower lung field. Remainder of exam was unremarkable. With the reports of elevated temperature and crackles in the left lung we'll treat for a presumed community-acquired pneumonia with Augmentin 875 mg twice a day 10 days and azithromycin 2 tablets today and one tablet a day for the next 4 days. She is to follow-up with her primary care provider in 3 days for recheck of symptoms. Anticipatory guidance warning symptoms were reviewed with the caregiver. Verbalizes understanding and agrees with plan of care. - Differential Dx/Diagnosis Differential Diagnosis/HQI/PQRI: Broncholiolitis, Influenza, Pneumonia, Upper Respiratory Infection Provider Diagnosis: Pneumonia involving left lung Discharge ED - Sign-Out/Discharge Documenting (check all that apply): Patient Departure All imaging exams completed and their final reports reviewed: No Studies - Discharge Plan Condition: Stable Disposition: HOME Prescriptions: Amoxicillin/Clavulanate TAB* [Augmentin TAB 875*] 875 mg PO BID 10 Days #20 tab Azithromyxin BRANDY (NF) [Z-Brandy (Zithromax) 250 mg tabs #6] 2 tab PO .TODAY, THEN 1 DAILY #6 tab Patient Education Materials: Community Acquired Pneumonia (ED) Referrals: Guerita Carwford MD [Primary Care Provider] - 3 Days (Follow up in 3 days for recheck of symptoms.) Additional Instructions: With your fever and crackles were heard in the left lung we will begin treatment for possible community-acquired pneumonia and start you on a combination of antibiotics. Start Augmentin 875 mg twice a day for 10 days. Take with food to avoid upset stomach. Be sure to complete the entire course of less instructed otherwise. Start azithromycin 2 tablets today then 1 tablet a day for the next 4 days. Take acetaminophen (Tylenol) according to directions as needed for fever. Follow-up with your primary care provider in 3 days for recheck of symptoms. Seek immediate medical attention in the emergency room if you have a persistent fever greater than 100.5 F despite taking acetaminophen, you have difficulty breathing, become lethargic, have any worsening of symptoms. - Billing Disposition and Condition Condition: STABLE Disposition: Home
== END 2019-12-27 14:10 | disposition home or self-care (01) ==
LOC: UCCORT 12:28
DX: J18.9 Pneumonia, unspecified organism (principal); H92.09 Otalgia, unspecified ear; F79 Unspecified intellectual disabilities; Z88.8 Allergy status to other drugs, medicaments and biological substances
CPT/HCPCS: 99212; G0463